=== PATIENT | male | born 1970 | race American Indian/Alaskan Native ===

== ENCOUNTER 2017-02-23 02:02 | Emergency (ER) | payer OTHER ==
[2017-02-23 03:26] LABS: Basophils % (Auto) 0.3 % (0.0-1.8); Eosinophils % (Auto) 0.8 % (0.0-4.3); Hematocrit 40.3 % (35.5-45.6); Hemoglobin 13.4 gm/dl (11.8-15.2); Mean Corpuscular HGB Conc 33 % (32-34); Mean Corpuscular Hemoglobin 27 pg (28-32); Mean Corpuscular Volume 81 fl (84-94); Platelet Count 172 K/mm3 (140-440); Red Blood Count 4.99 M/mm3 (3.65-5.03); Red Cell Distribution Width 12.9 % (13.2-15.2); White Blood Count 5.5 K/mm3 (4.5-11.0)
[2017-02-23 03:46] LABS: Anion Gap 20 mmol/L; Blood Urea Nitrogen 9 mg/dL (9-20); Calcium 9.1 mg/dL (8.4-10.2); Carbon Dioxide 24 mmol/L (22-30); Chloride 97.5 mmol/L (98-107); Glucose 317 mg/dL (75-100); Potassium 3.5 mmol/L (3.6-5.0); Sodium 138 mmol/L (137-145)
[2017-02-23] MEDS ORDERED: PERCOCET 5/325 PO ONE (05:20)
[2017-02-23] MEDS ORDERED: ZOFRAN IV ONE (05:20)
[2017-02-23 05:27] LABS: Creatine Kinase 130 units/L (55-170); Creatine Kinase MB 1.9 ng/mL (0.0-4.0)
[2017-02-23 05:56] VITALS: BP 151/106
== END 2017-02-23 05:45 | disposition left against medical advice (07) ==
LOC: ED 02:02
DX: I10 Essential (primary) hypertension (principal); Z53.21 Procedure and treatment not carried out due to patient leaving prior to being seen by health care provider
CPT/HCPCS: 36415; 80048; 82550; 82553; 82805; 84484; 85025; 93005; 93010